=== PATIENT | female | born 1990 ===

== ENCOUNTER 2024-01-26 12:50 | Outpatient (CLI) | payer SELFPAY ==
[2024-01-26 13:05] VITALS: BP 113/61; PULSE 61
[2024-01-26 13:18] VITALS: BP 104/56; PULSE 52
[2024-01-26 13:33] VITALS: BP 102/58; PULSE 64
[2024-01-26 13:50] VITALS: BP 102/58; PULSE 64; RESP 16
== END 2024-01-26 13:55 | disposition home or self-care (01) ==
LOC: OPOB 13:03 → OBGYN 13:04 → OPOB 13:06
PROVIDERS: Visit Provider Family Medicine
DX: O36.8190 Decreased fetal movements, unspecified trimester, not applicable or unspecified (principal); Z3A.00 Weeks of gestation of pregnancy not specified
CPT/HCPCS: 59025; 99211